=== PATIENT | male | born 1995 | race African-American/Black ===

== ENCOUNTER 2019-07-03 08:20 | Emergency (ER) | payer SELFPAY ==
[2019-07-03] MEDS ORDERED: Sodium Chloride 0.9% 10 ML Syringe FLUSH PRN (08:21)
[2019-07-03] MEDS ORDERED: Sodium Chloride 0.9% 10 ML SDV IV PRN (08:21)
[2019-07-03] MEDS ORDERED: Sodium Chloride 0.9% 2.5 ML Syringe FLUSH PRN (08:21)
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
[2019-07-03 08:48] LABS: BLOOD UREA NITROGEN,BUN 12 mg/dL (7.0-18.0); CARBON DIOXIDE,CO2 17.9 mmol/L (21.0-32.0); CHLORIDE,CL 101 mmol/L (98-107); GLUCOSE RANDOM 146 mg/dL (74-106); LIPASE 54 U/L (73-393); POTASSIUM,K 3.6 mmol/L (3.5-5.1); SODIUM,NA 139 mmol/L (136-148)
[2019-07-03] MEDS ORDERED: Iopamidol 755 Mg/ML 100 ML Bottle IVPUSH STA (08:55)
--- NOTE | 2019-07-03 09:03 | CT ---
Head CT Technique: Multiple axial sections through the brain were obtained. Intravenous contrast was not utilized. Comparison: No prior intracranial imaging. Findings: Soft tissue hematoma is noted posteriorly within the scalp. Ventricles along with basal cisterns and sulci over convexities are within normal limits. No abnormal parenchymal densities are seen. No evidence of intracranial hemorrhage. No midline shift or mass-effect is seen. No acute calvarial abnormality is appreciated. Visualized mastoid sinuses and middle ear cavities are clear. Impression: 1. Lesion posteriorly within the right parietal skull most likely representing scalp hematoma. 2. No acute intracranial abnormality is identified. Diagnostic code #2 This report was dictated in [place] Standard Time
--- NOTE | 2019-07-03 09:03 | CT ---
CT cervical spine Technique: Multiple axial sections were obtained from above the C1 inferiorly to the bottom of T2. Reconstructed sagittal and coronal images were reviewed. Comparison: No prior cervical spine imaging. Findings: Vertebral body heights and disc spaces are preserved. Vertebral bodies and posterior arches are intact with no fracture being seen. No abnormal subluxation is seen on the reconstructed sagittal views. Slightly abnormal cervical curvature is seen either positional or due to muscle spasm. Impression: 1. Slightly abnormal cervical curvature as noted above. 2. No acute fracture or other abnormality is appreciated. Diagnostic code #2 This report was dictated in [place] Standard Time
--- NOTE | 2019-07-03 09:43 | CR ---
Chest: Portable supine view of the chest was obtained. Comparison: No prior chest x-ray. Heart size and mediastinum are normal. Lungs are clear. Bony structures are grossly intact. Impression: 1. Nothing acute is appreciated on supine chest x-ray. Diagnostic code #1 This report was dictated in [place] Standard Time
--- NOTE | 2019-07-03 09:43 | CT ---
CT chest Technique: Multiple axial sections through the chest were obtained. Intravenous contrast was utilized. Findings: Artifact noted from the patient's arms. Mediastinum and hilar regions appear within normal limits. No mediastinal hematoma is seen. No axillary adenopathy is noted. No pericardial thickening is seen. Slight atelectasis is seen posteriorly within the left lung base. Lungs otherwise are clear. No acute parenchymal change is appreciated. Bone window settings were reviewed. No discrete rib fracture is appreciated. Vertebral body heights within the thoracic spine are maintained. No acute osseous finding is identified. Impression: 1. Mild atelectasis within the left lung base. 2. Nothing acute is appreciated on CT study of the chest. Diagnostic code #2 This report was dictated in [place] Standard Time
--- NOTE | 2019-07-03 09:43 | CT ---
CT abdomen and pelvis Technique: Multiple axial sections through the through the abdomen were obtained. Intravenous contrast was utilized. No oral contrast has been given. Artifact is noted from the patient's arms being along his side. Findings: Visualized lung bases shows minimal atelectasis within the left base. Lung bases are otherwise clear. Liver contains no discrete abnormality. No discrete abnormality appreciated within the spleen. Kidneys show contrast enhancement without hydronephrosis or mass. No discrete pancreas abnormality is seen. Gallbladder contains no calcified gallstones. Aorta shows no aneurysm. No retroperitoneal adenopathy or mesenteric abnormalities are seen. No pelvic fluid is seen. Bone window settings were reviewed which show no acute osseous finding. Impression: 1. Patient's arms cause significant artifact. Within this limitation, nothing acute is definitely appreciated on CT study of the abdomen and pelvis. 2. Minimal atelectasis within the left lung base. Diagnostic code #2 This report was dictated in [place] Standard Time
== END 2019-07-03 10:02 ==
LOC: MW.ED 08:20 → EDBD 08:20 → MERGE 08:20 → MW.ED 10:02
DX: S00.81XA Abrasion of other part of head, initial encounter (principal); S60.511A Abrasion of right hand, initial encounter; V47.5XXA Car driver injured in collision with fixed or stationary object in traffic accident, initial encounter; Y92.410 Unspecified street and highway as the place of occurrence of the external cause
CPT/HCPCS: 36415; 70450; 71045; 71260; 72125; 74177; 80053; 80305; 80320; 81001; 83690; 85025; 85610; 86850; 86900; 86901; 99284; Q9967; G0480